=== PATIENT | male | born 1955 | race Caucasian/White ===

== ENCOUNTER 2021-02-16 19:16 | Emergency (ER) | payer OTHER, SELFPAY ==
[2021-02-16 19:19] VITALS: BP 133/76; PULSE 104; RESP 17; TEMP 37.5; O2SAT 95; BMI 14.8
--- NOTE | 2021-02-16 19:21 | DI.RAD.S_ITS ---
PROCEDURE: XR HIP W PEL IF DONE LT 2V INDICATIONS: fall with hip pain TECHNIQUE: AP pelvis with lateral view of the left hip. COMPARISON: None. FINDINGS: Bones: No displaced fractures or dislocations. Pelvic ring appears intact. No suspicious bony lesions. Soft tissues: The visualized bowel gas pattern is normal. No suspicious soft tissue calcifications. IMPRESSION: 1. No displaced fracture or dislocation. If clinical concern persists for a nondisplaced fracture, further evaluation is recommended with CT. Dictated by: Vladimir Campbell M.D. on 02/16/2021 at 20:06 Approved by: Vladimir Campbell M.D. on 02/16/2021 at 20:08
[2021-02-16 19:42] VITALS: BP 133/76; PULSE 80; RESP 20; O2SAT 98
--- NOTE | 2021-02-16 19:45 | DI.CT.S_ITS ---
PROCEDURE: CT PEL WO CON INDICATIONS: fall with severe L hip pain TECHNIQUE: Noncontrast 3 mm axial sections acquired through the bony pelvis, with coronal and sagittal reformatting. COMPARISON: [facility], CR, XR HIP W PEL IF DONE LT 2V, 02/16/2021, 19:26. FINDINGS: Image quality: Excellent. Bones: There is a nondisplaced fracture of the medial left acetabulum extending to the medial acetabular rim. There is also extension to the lateral aspect of the left superior pubic ramus. No additional fractures identified. Specifically, no fracture of the proximal left femur identified. No dislocations. Soft tissues: There is a small left hip joint effusion. No discrete hematoma collections. Visualized musculature appears preserved. No intraperitoneal free fluid within the visualized pelvis. Visualized bowel loops appear normal in caliber. Bladder demonstrates normal wall thickness. There are diffuse vascular calcifications. IMPRESSION: 1. Nondisplaced left acetabular fracture. 2. Small left hip joint effusion. Dictated by: Vladimir Campbell M.D. on 02/16/2021 at 21:13 Approved by: Vladimir Campbell M.D. on 02/16/2021 at 21:17
--- NOTE | 2021-02-16 19:49 | ED_ITS ---
HPI - Extremity Injury (Lower) General Chief Complaint: Extremity Injury, Lower Stated Complaint: GLF Time Seen by Provider: 02/16/21 19:20 Source: patient and EMS Mode of arrival: EMS Limitations: no limitations History of Present Illness HPI Narrative: 65-year-old male nonsmoker presents by EMS for evaluation of left hip pain. Patient was ambulating earlier when he tripped and fell onto his left hip causing significant pain. He denies any head neck or back pain. He denies any chest pain or shortness of breath. He is at a local rehab facility and has been working with physical therapy due to a recent injury of his left hip. He states that on Monday he was walking outside of a restaurant when he tripped over curb and landed on his left hip, he was evaluated at an outside facility and had a CT demonstrating and non displaced acetabular fracture and was discharged to a local rehab facility as the result. He denies any numbness, tingling or weakness and is otherwise well and free of complaint. MD complaint: hip injury Onset (ago): hour(s) Type of Injury: blunt Place: Severity: moderate Relieving factors: rest Exacerbating factors: weight bearing, movement and palpation Context: fall and direct blow Associated symptoms: able to partially bear weight Other symptoms: none Related Data Previous Rx's Medication Instructions Recorded enoxaparin [Lovenox] 40 mg SUBCUT DAILY #4 ml 02/16/21 Allergies Allergy/AdvReac Type Severity Reaction Status Date / Time No Known Drug Allergies Allergy Verified 02/16/21 22:35 Review of Systems Constitutional Constitutional: Denies chills, Denies fatigue, Denies fever(s), Denies frequent falls, Denies lethargy and Denies weakness Eyes Eyes: Denies change in vision, Denies eye discharge, Denies irritation and Denies loss of vision ENT Ears, Nose, Mouth, and Throat: Denies change in voice, Denies dizziness, Denies neck pain, Denies sore throat and Denies throat swelling Cardiovascular Cardiovascular: Denies chest pain, Denies irregular heart rhythm, Denies lightheadedness, Denies palpitations, Denies dyspnea, Denies dyspnea on exertion and Denies orthopnea Respiratory Respiratory: Denies cough, Denies dyspnea, Denies dyspnea on exertion and Denies wheezing Gastrointestinal Gastrointestinal: Denies abdominal pain, Denies change in bowel habits, Denies diarrhea, Denies nausea and Denies vomiting Musculoskeletal Musculoskeletal: Reports as per HPI, Denies neck pain and Denies numbness Integumentary/Breasts Skin/Breast: Denies pruritus, Denies erythema, Denies rash and Denies wounds Neurologic Neurologic: Denies behavioral changes, Denies confusion, Denies dizziness, Denies frequent falls, Denies loss of vision, Denies numbness and Denies weakn ess Psychiatric Psychiatric: Denies anxiety, Denies behavioral changes, Denies confusion, Denies depression, Denies homicidal ideation and Denies suicidal ideation Endocrine Endocrine: Denies fatigue, Denies flushing and Denies palpitations Hematologic/Lymphatic Hematologic/Lymphatic: Denies easy bruising Allergic/Immunologic Allergic/Immunologic: Denies urticaria, Denies throat swelling and Denies wheezing Patient History Social History Smoking Status: Never smoker Smoking Status: Never smoker alcohol intake frequency: 0-2 drinks per day Substance Use Type: does not use Exam Narrative Exam Narrative: GENERAL: [65] year old patient appears stated age. Well- nourished, well-developed patient, in mild distress. HEAD: Atraumatic. Normocephalic. EYES: Pupils equal round and reactive. Extraocular motions intact. No scleral icterus. No injection or drainage. ENT: Nose without bleeding, purulent drainage. Throat without erythema, tonsillar hypertrophy or exudate. Airway patent. NECK: Trachea midline. Non tender CARDIOVASCULAR: Regular rate and rhythm without murmurs, gallops, or rubs. RESPIRATORY: Clear to auscultation. Breath sounds equal bilaterally. No wheezes, rales, or rhonchi. GASTROINTESTINAL: Abdomen soft, non-tender, nondistended. EXTREMITIES: Left hip tender to palpate, no crepitance, edema, ecchymosis nor shortening or rotation, closed, isolated and neurovascularly intact. BACK: Nontender without deformity or crepitance. No flank tenderness. NEURO: AOx3. SKIN: No rash or erythema of visible areas Initial Vital Signs Initial Vital Signs: Vital Signs Temperature 99.5 F 02/16/21 19:19 Pulse Rate 104 H 02/16/21 19:19 Respiratory Rate 17 02/16/21 19:19 Blood Pressure 133/76 02/16/21 19:19 Pulse Oximetry 95 06/01/21 19:19 Course Orders Ordered: ED Orders 02/16/21 19:21 XR hip w pel if done LT 2V Stat 02/16/21 19:45 CT pelvis wo con Stat Consultations Consultation #1: Discussed with on-call Orthopedics who event a chance to review imaging and agree with the radiology read. She recommends toe-touch ambulation only and follow-up as previously planned Vital Signs Vital signs: Vital Signs - 8 hr 02/16/21 19:19 02/16/21 19:42 02/17/21 00:04 Temperature 99.5 F 99.9 F H Pulse Rate 104 H 80 103 H Respiratory Rate 17 20 20 Blood Pressure 133/76 133/76 158/86 H Pulse Oximetry 95 98 94 MDM - Extremity Injury (Lower) Imaging Data Pelvis CT: Radiologist's Impression: Chart Viewer Diagnostics DATE TYPE STATUS REF RANGE/AUTHOR Hx 02/16/21 19:45 Vladimir Campbell 02/16/21 19:21 Vladimir Campbell Bradley J 65, M0 1955 [facility] ER, Main ED 175.26cm 45.359kg BMI: 14.8kg/m? Extremity Injury, Lower Search Chart No Data to Display ONSET Today 00:04 Jayjay Suarez M [address] [id number] Scan ReportSigned Patient: Jayjay Suarez JMR#: [id number]: 1955cct:[id number]/Sex: 65 / MDate of Service: 02/16/21Loc: EDAccession Number: [id number] Procedure: CT pelvis wo con Ordering Provider: Olivier Bryan D.O. PROCEDURE: CT PEL WO CON INDICATIONS: fall with severe L hip pain TECHNIQUE: Noncontrast 3 mm axial sections acquired through the bony pelvis, with coronal and sagittal reformatting. COMPARISON: [facility], CR, XR HIP W PEL IF DONE LT 2V, 02/16/2021, 19:26. FINDINGS: Image quality: Excellent. Bones: There is a nondisplaced fracture of the medial left acetabulum extending to the medial acetabular rim. There is also extension to the lateral aspect of the left superior pubic ramus. No additional fractures identified. Specifically, no fracture of the proximal left femur identified. No dislocations. Soft tissues: There is a small left hip joint effusion. No discrete hematoma collections. Visualized musculature appears preserved. No intraperitoneal free fluid within the visualized pelvis. Visualized bowel loops appear normal in caliber. Bladder demonstrates normal wall thickness. There are diffuse vascular calcifications. IMPRESSION: 1. Nondisplaced left acetabular fracture. 2. Small left hip joint effusion. Dictated by: Vladimir Campbell M.D. on 02/16/2021 at 21:13 Approved by: Vladimir Campbell M.D. on 02/16/2021 at 21:17 Discharge Plan Departure Patient Disposition: Home Clinical Impression: Acute hip pain Qualifiers: Laterality: left Qualified Code(s): M25.552 - Pain in left hip Acetabulum fracture, left Qualifiers: Encounter type: initial encounter Sublocation of acetabulum: anterior wall Fracture type: closed Fracture alignment: nondisplaced Qualified Code(s): S32.415A - Nondisplaced fracture of anterior wall of left acetabulum, initial encounter for closed fracture Instructions: DI for Hip Pain Activity Restrictions/Additional Instructions: *You have been diagnosed with [fall with left hip pain. This CT shows no change in the nondisplaced fracture you have.] *What to do: *Please continue to take your regular medications as directed. [ ] New medication prescriptions sent to your pharmacy: [ ] [ x] New medication written as a paper prescription [ ] No new medications given * I went over the imaging with our orthopedist on-call. She states she would encourage you to use toe-touch weight-bearing only *If you do not have a primary care provider please contact the [facility] Resource line at [phone]. They will ask some questions about your medical history and help get you set up with a doctor in the community. *Return to Emergency Department if you should have any new, worsening or concerning symptoms, such as [fever greater than 101 F, shaking chills, worsening pain, persistent vomiting or other bothersome symptoms] Prescriptions: New enoxaparin [Lovenox] 40 mg/0.4 mL syringe 40 mg SUBCUT DAILY Qty: 4 RF: 0
[2021-02-17 00:04] VITALS: BP 158/86; PULSE 103; RESP 20; TEMP 37.7; O2SAT 94
== END 2021-02-16 23:50 | disposition home or self-care (01) ==
PROVIDERS: Emergency Provider Emergency Medicine
DX: S32.415A Nondisplaced fracture of anterior wall of left acetabulum, initial encounter for closed fracture (principal); W19.XXXA Unspecified fall, initial encounter
CPT/HCPCS: 72192; 73502; 99283; 99284